=== PATIENT | female | born 1955 | race Caucasian/White ===

== ENCOUNTER → 2016-03-21 | Outpatient (CLI) | payer BC ==
[~2016-03-21] MED LIST: CEPH500C PO; EZET10TA63 PO; PRM/45 PO; SIMV20TA2 PO; SYN50 PO
--- NOTE | 2016-03-21 16:44 | MAMMOGRAPHY REPORT ---
BILATERAL DIGITAL SCREENING MAMMOGRAM TOMOSYNTHESIS WITH CAD: 03/21/2016 TECHNIQUE: Breast tomosynthesis in addition to standard 2D mammography was performed. Current study was also evaluated with a Computer Aided Detection (CAD) system. COMPARISON: Comparison is made to exams dated: 03/19/2015 mammogram, 03/17/2014 mammogram, 04/19/2014 ma mmogram, 08/02/2012 mammogram, 01/29/2012 mammogram, and 01/22/2011 mammogram - [facility]. BREAST COMPOSITION: The tissue of both breasts is heterogeneously dense, which may obscure small ma sses. FINDINGS: No suspicious masses, calcifications, or areas of architectural distortion are noted in e ither breast. There has been no significant interval change compared to prior exams. Again noted ar e multiple surgical clips in the right upper outer quadrant posteriorly. 2 biopsy marker clips are also again noted in the right breast. Scattered bilateral benign-appearing calcifications are not s ignificantly changed. IMPRESSION: ACR BI-RADS CATEGORY 2: BENIGN There is no mammographic evidence of malignancy. A 1 year screening mammogram is recommended. The p atient will receive written notification of the results. Approximately 10% of breast cancers are not detected with mammography. A negative mammographic repor t should not delay biopsy if a clinically suggestive mass is present. Yara Tomlinson M.D. ah/:03/21/2016 15:57:27 Charter Pilot: Montse DEMPSEY)(M), [facility] letter sent: Normal 1/2 BI-RADS Code: ACR BI-RADS Category 2: Benign
== END | disposition home or self-care (01) ==
LOC: C.MAMM 10:22
PROVIDERS: ATTEND Internal Medicine
DX: Z12.31 Encounter for screening mammogram for malignant neoplasm of breast (principal)

== ENCOUNTER → 2016-12-17 | Outpatient (CLI) | payer BC ==
[2016-12-17 13:29] LABS: BASO % 0.9 %; BASO ABS # 0.06 K/uL (0-0.2); COMPLETE YES; HEMATOCRIT 43.3 % (37-47); IG% 0.1 %; LYMPH % 31.3 %; LYMPH ABS # 2.15 K/uL (1.2-3.4); MEAN CELL VOLUME 92.5 fL (80-100); MEAN CORPUSCULAR HEMOGLOBIN 31.4 pg (25-34); MEAN CORPUSCULAR HGB CONC 33.9 g/dl (32-36); MEAN PLATELET VOLUME 9.9 fL (7.4-10.4); NEUT % 56.7 %; PLATELET COUNT 248 K/uL (130-400); RED BLOOD COUNT 4.68 M/uL (4.2-5.4); WHITE BLOOD COUNT 6.87 K/uL (4.8-10.8)
[2016-12-17 13:54] LABS: ALT/SGPT 18 U/L (12-78); AST/SGOT 32 U/L (15-37); BLOOD UREA NITROGEN 17 mg/dl (7-18); BUN/CREATININE RATIO 20.7 (10-20); CALCIUM 9.3 mg/dl (8.5-10.1); CARBON DIOXIDE 27 mmol/L (21-32); CHLORIDE 104 mmol/L (98-107); CHOLESTEROL 186 mg/dl (0-200); CREATININE 0.83 mg/dl (0.60-1.20); GLUCOSE 85 mg/dl (70-99); POTASSIUM 4.2 mmol/L (3.5-5.1); SODIUM 139 mmol/L (136-145); TRIGLYCERIDES 108 mg/dl (0-150); VERY LOW DENSITY LIPOPROT CALC 22 mg/dl
[2016-12-17 14:04] LABS: ALKALINE PHOSPHATASE 97 U/L (45-117); CHOLESTEROL/HDL RATIO 2.2; HDL CHOLESTEROL 84 mg/dl; LDL CHOLESTEROL CALCULATED 80 mg/dl
== END | disposition home or self-care (01) ==
LOC: C.LABBC 09:22
PROVIDERS: ATTEND Internal Medicine
DX: H91.91 Unspecified hearing loss, right ear (principal); E03.9 Hypothyroidism, unspecified; M81.0 Age-related osteoporosis without current pathological fracture; E78.5 Hyperlipidemia, unspecified; Z89.612 Acquired absence of left leg above knee

== ENCOUNTER → 2017-01-15 | Outpatient (CLI) | payer BC | END | disposition home or self-care (01) | LOC: C.MAMM 13:52 | PROVIDERS: ATTEND Internal Medicine | DX: M81.0 Age-related osteoporosis without current pathological fracture (principal) ==

== ENCOUNTER → 2017-03-23 | Outpatient (CLI) | payer BC ==
--- NOTE | 2017-03-24 12:57 | MAMMOGRAPHY REPORT ---
BILATERAL DIGITAL SCREENING MAMMOGRAM TOMOSYNTHESIS WITH CAD: 03/23/2017 CLINICAL HISTORY: Routine screening. Patient has no complaints. TECHNIQUE: Breast tomosynthesis in addition to standard 2D mammography was performed. Current study was also evaluated with a Computer Aided Detection (CAD) system. COMPARISON: Comparison is made to exams dated: 03/21/2016 mammogram, 03/19/2015 mammogram, 03/17/2014 daryl mogram, 08/02/2012 mammogram, 01/20/2012 mammogram, and 01/14/2011 mammogram - [facility]. BREAST COMPOSITION: The tissue of both breasts is heterogeneously dense, which may obscure small mas ses. FINDINGS: There is stable expected architectural distortion and surgical clips in the upper outer pos terior right breast. 2 stable metallic biopsy markers are also seen in the right breast. Stable jalyn upings of benign-appearing round and punctate microcalcifications in the left breast. No developing m ass, architectural distortion or cluster of suspicious microcalcifications is seen in either breast. IMPRESSION: ACR BI-RADS CATEGORY 2: BENIGN There is no mammographic evidence of malignancy. A 1 year screening mammogram is recommended. The pa tient will receive written notification of the results. Approximately 10% of breast cancers are not detected with mammography. A negative mammographic report should not delay biopsy if a clinically suggestive mass is present. Mady Velasco M.D. ay/:03/23/2017 15:54:22 Billing Typist: Melly Rehman RT(R)(M), [facility] letter sent: Normal 1/2 BI-RADS Code: ACR BI-RADS Category 2: Benign
== END | disposition home or self-care (01) ==
LOC: C.MAMM 13:46
PROVIDERS: ATTEND Internal Medicine
DX: Z12.31 Encounter for screening mammogram for malignant neoplasm of breast (principal)

== ENCOUNTER 2024-04-17 15:10 | Inpatient (IN) ==
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
[2024-04-17 16:34] LABS: Basophils # (auto) 0.04 K/uL (0.00-0.20); Basophils % (auto) 0.4 %; Eosinophils # (auto) 0.08 K/uL (0.00-0.50); Eosinophils % (auto) 0.7 %; Hemoglobin 13.4 g/dl (12.0-16.0); Immature Granulocytes # (auto) 0.03 K/uL (0.01-0.20); Immature Granulocytes % (auto) 0.3 %; Lymphocytes % (auto) 13.8 %; Mean Corpuscular Hemoglobin 30.1 pg (25.0-34.0); Mean Corpuscular Hgb Conc 34.4 g/dL (32.0-36.0); Mean Corpuscular Volume 87.6 fL (80.0-100.0); Mean Platelet Volume 9.8 fL (9.4-12.4); Monocytes # (auto) 0.76 K/uL (0.11-0.59); Neutrophils # (auto) 8.44 K/uL (1.40-6.50); Neutrophils % (auto) 77.8 %; Platelet Count 339 K/uL (130-400); RDW Coefficient of Variation 13.8 % (11.5-14.5); RDW Standard Deviation 44.5 fL (36.4-46.3); Red Blood Count 4.45 M/uL (4.20-5.40); White Blood Count 10.85 K/ul (4.8-10.8)
[2024-04-17 16:39] LABS: Albumin Globulin Ratio 1.1 (0.9-2); Albumin Level 4.3 gm/dl (3.4-5.0); BUN Creatinine Ratio 25.8 (10-20); Bilirubin,Total 0.5 mg/dl (0.2-1.0); Creatinine Clr Calc Pharmacy 68.5 ml/min; Globulin 3.8 gm/dl (2.5-4.0); Potassium 3.3 mmol/L (3.5-5.1); Total Protein 8.1 gm/dl (6.0-8.3)
[2024-04-17] MEDS: ALBUT/IPRATROP 3MG/0.5MG NEB 3 ML VIAL NEB ONE (16:41)
[2024-04-17 16:45] LABS: Troponin I High Sensitivity 3.7 pg/ml (0-14)
--- NOTE | 2024-04-17 16:50 | XRay Report ---
EXAM: Radiograph of the Chest 1 View INDICATION: Dyspnea TECHNIQUE: Frontal view of the chest. COMPARISON: 11/05/2023 FINDINGS: Lungs and pleural spaces: Hyperinflation with minimal patchy infiltrates in each base. No pleural effusion or pneumothorax. Heart: Prominent cardiac shadow accentuated by technique. Mediastinum: Normal contour. Bones/joints: No fracture, erosion or dislocation. Soft tissues: No abnormality noted. No radiopaque foreign body noted. Upper abdomen: No abnormality noted. IMPRESSION: Chronic hyperinflation with minimal patchy bilateral basilar atelectasis or pneumonia. ACT 112: N/A Electronically signed by Marci Mendez 04-17-2024 4:49 PM
[2024-04-17 17:02] LABS: INR 0.9 (0.9-1.1); Prothrombin Time 10.3 Seconds (9.0-12.0)
[2024-04-17 17:19] LABS: Adenovirus PCR Not Detected (NotDetected); Bordetella parapertussis PCR Not Detected (NotDetected); Bordetella pertussis PCR Not Detected (NotDetected); Chlamydia pneumoniae PCR Not Detected (NotDetected); Coronavirus 229E PCR Not Detected (NotDetected); Coronavirus CoV-2 (COVID19)PCR Not Detected (NotDetected); Coronavirus HKU1 PCR Not Detected (NotDetected); Coronavirus NL63 PCR Not Detected (NotDetected); Coronavirus OC43PCR Not Detected (NotDetected); Human Metapneumovirus PCR Not Detected (NotDetected); Influenza A PCR Not Detected (NotDetected); Influenza B PCR Not Detected (NotDetected); Mycoplasma pneumoniae PCR Not Detected (NotDetected); Parainfluenza Virus 1 PCR Not Detected (NotDetected); Parainfluenza Virus 2 PCR Not Detected (NotDetected); Parainfluenza Virus 3 PCR Not Detected (NotDetected); Parainfluenza Virus 4 PCR Not Detected (NotDetected); Respiratory Syncytial VirusPCR Not Detected (NotDetected); Rhinovirus/Enterovirus PCR Not Detected (NotDetected)
[2024-04-17] MEDS: OPTIRAY 320 125ml IV ONE (17:56)
--- NOTE | 2024-04-17 18:06 | CT Scan Report ---
EXAM: CT Angiography Chest With Intravenous Contrast INDICATION: Cough and congestion. TECHNIQUE: Axial computed tomographic angiography images of the chest with intravenous contrast. Sagittal and coronal reformatted images were created and reviewed. This CT exam was performed using one or more of the following dose reduction techniques: automated exposure control, adjustment of the mA and/or kV according to patient size, and/or use of iterative reconstruction technique. MIP reconstructed images were created and reviewed. CONTRAST: 119 ml of Optiray 320 was administered intravenously. COMPARISON: 11/05/2023 FINDINGS: Pulmonary arteries: No abnormality noted. No pulmonary embolism. Aorta: No acute change noted. No thoracic aortic aneurysm or dissection. Lungs and pleural spaces: Respiratory motion limits assessment of the pulmonary parenchyma. Stable centrilobular emphysema. There is mild bilateral lower lobe atelectasis. Mild lower lobe airway thickening difficult to exclude. No pleural effusion or pneumothorax. No bronchiectasis or honeycombing. No mass. Heart: Cardiomegaly. No evidence of right heart strain. No pericardial effusion. Thyroid: Stable dense 5 mm left thyroid calcification. No further assessment required. Bones/joints: No acute or atypical chronic changes. Soft tissues: No abnormality noted. Lymph nodes: No abnormality noted. No enlarged lymph nodes. IMPRESSION: 1. No pulmonary embolus noted. 2. Respiratory motion limits assessment of the pulmonary parenchyma. There may be mild bronchitis. There is bilateral lower lobe atelectasis. 3. Stable centrilobular emphysema. ACT 112: N/A Electronically signed by Marci Mendez 04-17-2024 6:05 PM
[2024-04-17] MEDS: methylPREDNISolone 125 MG/2 ML VIAL IV STA (18:21)
[2024-04-17 18:44] LABS: Appearance Urine Clear (Clear); Bacteria Urine Automated None Seen (None Seen); Bilirubin Urine Negative (Negative); Blood Urine Negative (Negative); Cast Urine Automated 0-2 /lpf (0-2); Color Urine Yellow; Epithelial Cell Urine Auto 0-2 /hpf (0-2); Glucose Urine UA Negative (Negative); Ketones Urine 3+ (Negative); Leukocyte Esterase Urine Negative (Negative); Mucus Urine Present (None Prsent); Nitrite Urine Negative (Negative); Protein Urine 1+ (Negative); RBC Urine Automated 0-2 /hpf (0-2); Specific Gravity Urine 1.026 (1.000-1.030); Urobilinogen Urine Negative (Negative); WBC Urine Automated 0-5 /hpf (0-5); pH Urine 5.5 (4.5-7.5)
[2024-04-17] MEDS: ACETAMINOPHEN 325 MG TAB PO STA (18:54)
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
[2024-04-17] MEDS ORDERED: ONDANSETRON INJ 2 MG/ML 2 ML VIAL IV PRN (23:22)
[2024-04-17] MEDS ORDERED: methylPREDNISolone 10 mg/mL (For Ped Dose < 7mg) IV SCH (23:22)
[2024-04-18] MEDS: HEPARIN SOD 5,000 UNIT/0.5 ML VIAL SQ SCH (00:19)
[2024-04-18] MEDS: CHOLECALCIFEROL 25 MCG (1000 UNITS) TAB PO SCH (00:20)
[2024-04-18] MEDS: SIMVASTATIN 20 MG TAB PO SCH (00:20)
[2024-04-18] MEDS: levoFLOXacin/D5W 750 MG/150 ML BAG IV SCH (00:20)
[2024-04-18] MEDS: MULTIVITAMIN TAB PO SCH (00:20)
[2024-04-18] MEDS: methylPREDNISolone 40 MG in SYRINGE 0 ML IV SCH (01:56)
[2024-04-18 06:11] LABS: Hematocrit (blood only) 37.3 % (37.0-47.0); Hemoglobin 12.7 g/dl (12.0-16.0); Mean Corpuscular Hemoglobin 29.2 pg (25.0-34.0); Mean Corpuscular Volume 85.7 fL (80.0-100.0); Mean Platelet Volume 9.3 fL (9.4-12.4); Platelet Count 319 K/uL (130-400); RDW Coefficient of Variation 13.9 % (11.5-14.5); RDW Standard Deviation 43.6 fL (36.4-46.3); Red Blood Count 4.35 M/uL (4.20-5.40); White Blood Count 10.66 K/ul (4.8-10.8)
[2024-04-18 06:20] LABS: BUN Creatinine Ratio 24.2 (10-20); Calcium 9.4 mg/dl (8.6-10.3); Creatinine Clr Calc Pharmacy 72.9 ml/min; Potassium 3.9 mmol/L (3.5-5.1)
[2024-04-18 06:31] LABS: Basophils # (auto) 0.01 K/uL (0.00-0.20); Basophils % (auto) 0.1 %; Immature Granulocytes # (auto) 0.05 K/uL (0.01-0.20); Immature Granulocytes % (auto) 0.5 %; Lymphocytes # (auto) 0.65 K/uL (1.20-3.40); Lymphocytes % (auto) 6.1 %; Monocytes % (auto) 0.9 %; Neutrophils # (auto) 9.85 K/uL (1.40-6.50); Neutrophils % (auto) 92.4 %; Polychromasia 1+
[2024-04-18] MEDS: ASCORBIC ACID 500 MG TAB PO SCH (08:00)
--- NOTE | 2024-04-18 08:35 | Hospitalist Progress Note ---
Date of Service April 18, 2024 Assessment & Plan (1) Bronchitis: (2) Acute respiratory failure with hypoxia: (3) Acute hypokalemia: Plan SOB at rest began on 04/17. Thought to be secondary to bronchitis. Much improved on 04/18. Continued stay due to hypoxia/increased oxygen demand. #Bronchitis BioFire negative on 04/17 No leukocytosis; afebrile CXR on arrival revealed chronic hyperinflation with minimal patchy bilateral atelectasis v. PNA No leukocytosis; afebrile Continue Levaquin 750 mg IV q24h; QTc okay at 440 Continue Solu-Medrol 40 mg IV q8h Sputum culture pending #Acute hypoxic respiratory failure SpO2 88% on admission Patient is a former tobacco cigarette smoker, but denies history of asthma or COPD She does not follow with a bilingual teacher assistant, and does not believe she has ever had PFTs done Chest CT on arrival revealed no pulmonary embolism Titrate supplemental oxygen as needed to maintain SpO2 >94% Continue to wean as tolerated Continuous pulse oximetry Note: On 04/18, patient's SpO2 continued to drop below 90% while at rest on room air when titrated off oxygen 2 Step home O2 evaluation on the morning of 04/19 #Former tobacco cigarette smoker Noted; quit 4 years ago #Hypokalemia Resolved Disposition: Continued stay due to hypoxia on room air Regular diet VTE PPx: Heparin 5000u SQ q12h Admission and Anticipated Discharge Date Admission Date: April 17, 2024 Subjective Shira reports her breathing is much improved from yesterday, and that the steroids are helping her symptoms. She originally presented on 04/17 for worsening ABLDWIN, and development of SOB at rest. She has had a dry cough ongoing for the past couple weeks, and was taking Mucinex cold and flu last week as she thought she might be sick. She does have a sick coworker that she has been working with. She does not use supplemental oxygen at baseline or CPAP at night. Patient is a former tobacco cigarette smoker but quit 4 years ago. She denies prior history of COPD and asthma. She does not follow with a bilingual teacher assistant, and does not believe she has ever had PFTs done. ROS: Patient endorses night sweats, BALDWIN, SOB at rest (resolved), dry cough, coughing fits with deep breath, and loose stool. Patient denies fever, chills, body aches, chest pain, chest palpitations, pleuritic CP, abdominal pain, N/V/D, or blood in the urine or stool. Review of Systems Review of Systems: See HPI above Physical Exam Physical Exam: General: no acute distress; pleasant affect; non-toxic appearing; well- nourished; cooperative; SpO2 94% on 2L NC HEENT: normocephalic, atraumatic; no scleral icterus; PERRLA; vision intact; hard of hearing Neck: supple; no lymphadenopathy; trachea midline Skin: warm, dry without signs of tenting; no cyanosis; no rashes, bruising, lesions, or erythema noted CV: chest wall NTP; RRR; S1/S2 normal; no murmurs/rubs/gallops; pulses intact and symmetric at radial, DP, and PT Lungs: no acute respiratory distress; symmetrical chest wall expansion; mild bibasilar crackles in the lung grady bilaterally ABD: Soft, NTP; BS present; no rebound/guarding; no distention MSK: no tics or fasciculations; no edema noted in the RLE, nonerythematous; prosthetic LLE Neuro: A&Ox3; normal mood and affect; fluent speech; no focal deficits; sensation intact in the RLE Trial of patient on room air, and patient's SpO2 dropped to 90% while laying in bed Results & Data Results & Data Vital Signs (Past 12 Hours) Vital Signs Temp Pulse Pulse Pulse Resp BP Pulse Ox 04/18/24 07:28 70 04/18/24 07:12 36.6 C 67 18 160/71 H 94 04/18/24 03:30 36.5 C 75 18 149/72 H 97 04/18/24 02:01 36.6 C 04/18/24 00:05 68 04/17/24 23:20 04/17/24 23:20 36.6 C 89 20 152/64 H 96 04/17/24 22:00 72 18 131/71 93 O2 Del Method O2 Flow Rate 04/18/24 07:28 04/18/24 07:12 Nasal Cannula 2 04/18/24 03:30 Nasal Cannula 2 04/18/24 02:01 04/18/24 00:05 04/17/24 23:20 Nasal Cannula 3 04/17/24 23:20 Nasal Cannula 3 04/17/24 22:00 Nasal Cannula 3 Laboratory Results Abnormal lab results 04/17/24 04/17/24 04/18/24 Range/Units 15:32 17:39 02:00 WBC 10.85 H (4.8-10.8) K/ul MPV (9.4-12.4) fL Neut # (Auto) 8.44 H (1.40-6.50) K/uL Lymph # (Auto) (1.20-3.40) K/uL [place] # (Auto) 0.76 H (0.11-0.59) K/uL Potassium 3.3 L (3.5-5.1) mmol/L BUN/Creatinine Ratio 25.8 H (10-20) Glucose 102 H (70-99(Fasting)) mg/dl POC Glucose 206 H (70-99) mg/dl Urine Protein 1+ H (Negative) Urine Ketones 3+ H (Negative) Urine Mucus Present A (None Prsent) 04/18/24 Range/Units 05:27 WBC (4.8-10.8) K/ul MPV 9.3 L (9.4-12.4) fL Neut # (Auto) 9.85 H (1.40-6.50) K/uL Lymph # (Auto) 0.65 L (1.20-3.40) K/uL [place] # (Auto) 0.10 L (0.11-0.59) K/uL Potassium (3.5-5.1) mmol/L BUN/Creatinine Ratio 24.2 H (10-20) Glucose 140 H (70-99(Fasting)) mg/dl POC Glucose (70-99) mg/dl Urine Protein (Negative) Urine Ketones (Negative) Urine Mucus (None Prsent) Diagnostic Findings Chest X-Ray 04/17/24 15:58 EXAM: Radiograph of the Chest 1 View INDICATION: Dyspnea TECHNIQUE: Frontal view of the chest. COMPARISON: 11/05/2023 FINDINGS: Lungs and pleural spaces: Hyperinflation with minimal patchy infiltrates in each base. No pleural effusion or pneumothorax. Heart: Prominent cardiac shadow accentuated by technique. Mediastinum: Normal contour. Bones/joints: No fracture, erosion or dislocation. Soft tissues: No abnormality noted. No radiopaque foreign body noted. Upper abdomen: No abnormality noted. IMPRESSION: Chronic hyperinflation with minimal patchy bilateral basilar atelectasis or pneumonia. ACT 112: N/A Electronically signed by Marci Mendez 04-17-2024 4:49 PM Chest CTA 04/17/24 16:22 EXAM: CT Angiography Chest With Intravenous Contrast INDICATION: Cough and congestion. TECHNIQUE: Axial computed tomographic angiography images of the chest with intravenous contrast. Sagittal and coronal reformatted images were created and reviewed. This CT exam was performed using one or more of the following dose reduction techniques: automated exposure control, adjustment of the mA and/or kV according to patient size, and/or use of iterative reconstruction technique. MIP reconstructed images were created and reviewed. CONTRAST: 119 ml of Optiray 320 was administered intravenously. COMPARISON: 11/05/2023 FINDINGS: Pulmonary arteries: No abnormality noted. No pulmonary embolism. Aorta: No acute change noted. No thoracic aortic aneurysm or dissection. Lungs and pleural spaces: Respiratory motion limits assessment of the pulmonary parenchyma. Stable centrilobular emphysema. There is mild bilateral lower lobe atelectasis. Mild lower lobe airway thickening difficult to exclude. No pleural effusion or pneumothorax. No bronchiectasis or honeycombing. No mass. Heart: Cardiomegaly. No evidence of right heart strain. No pericardial effusion. Thyroid: Stable dense 5 mm left thyroid calcification. No further assessment required. Bones/joints: No acute or atypical chronic changes. Soft tissues: No abnormality noted. Lymph nodes: No abnormality noted. No enlarged lymph nodes. IMPRESSION: 1. No pulmonary embolus noted. 2. Respiratory motion limits assessment of the pulmonary parenchyma. There may be mild bronchitis. There is bilateral lower lobe atelectasis. 3. Stable centrilobular emphysema. ACT 112: N/A Electronically signed by Marci Mendez 04-17-2024 6:05 PM PG Care Time/CCT Total # of Minutes Spent Total Time Spent with Patient: Total time spent is greater than 50% in coordination of care (as documented) at patient's floor/unit and/or counseling patient: Coding [place] [address] SUB INP/OBS CARE 2/35MIN Patient Type Established Medical Decision Making Moderate Complexity Diagnoses Bronchitis J40 Acute respiratory failure with hypoxia J96.01 Acute hypokalemia E87.6
[2024-04-18] MEDS: ACETAMINOPHEN 325 MG TAB PO PRN (10:29)
[2024-04-18] MEDS ORDERED: BENZONATATE 100 MG CAPSULE PO PRN (16:06)
--- NOTE | 2024-04-19 06:05 | Electrocardiogram Report ---
Test Reason : Blood Pressure : */* mmHG Vent. Rate : 85 BPM Atrial Rate : 85 BPM P-R Int : 174 ms QRS Dur : 86 ms QT Int : 370 ms P-R-T Axes : 76 -42 58 degrees QTcB Int : 440 ms Normal sinus rhythm Left axis deviation Minimal voltage criteria for LVH, may be normal variant ( [place] product ) Nonspecific ST abnormality Abnormal ECG When compared with ECG of 31-Aug-2018 17:45, Premature ventricular complexes are no longer Present Vent. rate has increased by 29 bpm QRS axis Shifted left Confirmed by Sachin Tellez ([id number]) on 04/19/2024 6:05:18 AM Referred By: Ev Camp Confirmed By: Sachin Tellez
[2024-04-19 08:46] LABS: Hematocrit (blood only) 39.6 % (37.0-47.0); Hemoglobin 13.3 g/dl (12.0-16.0); Mean Corpuscular Hemoglobin 29.2 pg (25.0-34.0); Mean Corpuscular Hgb Conc 33.6 g/dL (32.0-36.0); Mean Platelet Volume 9.5 fL (9.4-12.4); Platelet Count 373 K/uL (130-400); RDW Standard Deviation 44.4 fL (36.4-46.3); Red Blood Count 4.55 M/uL (4.20-5.40); White Blood Count 21.89 K/ul (4.8-10.8)
[2024-04-19 09:12] LABS: BUN Creatinine Ratio 32.8 (10-20); Calcium 9.2 mg/dl (8.6-10.3); Creatinine Clr Calc Pharmacy 67.5 ml/min; Potassium 4.1 mmol/L (3.5-5.1)
[2024-04-19 09:13] LABS: Basophils # (auto) 0.02 K/uL (0.00-0.20); Basophils % (auto) 0.1 %; Immature Granulocytes # (auto) 0.16 K/uL (0.01-0.20); Immature Granulocytes % (auto) 0.7 %; Lymphocytes # (auto) 0.99 K/uL (1.20-3.40); Lymphocytes % (auto) 4.5 %; Monocytes # (auto) 0.89 K/uL (0.11-0.59); Monocytes % (auto) 4.1 %; Neutrophils # (auto) 19.83 K/uL (1.40-6.50); Neutrophils % (auto) 90.6 %
--- NOTE | 2024-04-19 09:42 | Hospitalist Progress Note ---
Date of Service April 19, 2024 Assessment & Plan (1) Bronchitis: (2) Acute respiratory failure with hypoxia: (3) Acute hypokalemia: Plan SOB at rest began on 04/17. Thought to be secondary to bronchitis. Patient did report she had a setback secondary to coughing fits/chills/night sweats on the morning of 04/19. Continued stay due to hypoxia/increased oxygen demand. #Bronchitis BioFire negative on 04/17 CXR on arrival revealed chronic hyperinflation with minimal patchy bilateral atelectasis v. PNA Chest CTA revealed bilateral lower lobe atelectasis and bronchitis; no mention of consolidation to suggest pneumonia Patient did develop a leukocytosis of 21.89 on 04/19, but this was in the setting of IV steroid use; no reported or documented fevers Elevated CRP and ESR Procalcitonin WNL on 04/19 Guaifenesin 600 mg p.o. BID for cough DuoNeb 3 mL Q6R Levaquin 750 mg IV q24h; QTc okay at 440 Solu-Medrol 40 mg IV daily First sputum culture appeared contaminated; repeat sputum culture ordered, pending #Acute hypoxic respiratory failure SpO2 88% on admission Patient is a former tobacco cigarette smoker, but denies history of asthma or COPD She does not follow with a educational technologist, and does not believe she has ever had PFTs done Chest CT on arrival revealed no pulmonary embolism Titrate supplemental oxygen as needed to maintain SpO2 >94% Continue to wean as tolerated Continuous pulse oximetry Note: On the morning of 04/19, patient's SpO2 continued to drop below 90% while at rest on room air when titrated off oxygen Patient declined two-step with respiratory therapy that, as she reported feel ing worse overnight However, on the evening of 04/19, patient is currently on room air; will defer ordering additional two-step #Former tobacco cigarette smoker Noted; quit 4 years ago #Hypokalemia Resolved Disposition: Continued stay due to hypoxia on room air Regular diet VTE PPx: Heparin 5000u SQ q12h Admission and Anticipated Discharge Date Admission Date: April 17, 2024 Dipesh Silva reports that she did not sleep well and she was coughing most of the night. She reports her cough has become more productive, and she is coughing up clear sputum production. She denies any blood in her mucus, but does report nasal congestion and some blood when blowing her nose. Additionally, she does report she has been wheezing. While she initially declined 2 step respiratory therapy evaluation for home oxygen this morning, she does report she is amenable to trying a two-step if unable to wean off of oxygen. Patient does not normally ambulate with a walker or cane at home, and reports that she is normally very mo bile. Additionally, patient expresses concern that she will require a doctor's excuse upon discharge. 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 She is also requesting 2 additional days to recuperate upon discharge. ROS: Patient endorses chills and night sweats, coughing fits, wheezing, and productive cough (clear sputum production). Patient denies fever, body aches, lightheadedness when walking, rashes, tick bites, hemoptysis, chest pain, chest palpitations, abdominal pain, or nausea/vomiting/diarrhea. Review of Systems Review of Systems: See HPI above Physical Exam Physical Exam: General: no acute distress; pleasant affect; non-toxic appearing; well- nourished; cooperative; SpO2 97% on 2L NC HEENT: normocephalic, atraumatic; no scleral icterus; PERRLA; vision intact; hard of hearing Neck: supple; no lymphadenopathy; trachea midline Skin: warm, dry without signs of tenting; no cyanosis; no rashes, bruising, lesions, or erythema noted CV: chest wall NTP; RRR; S1/S2 normal; no murmurs/rubs/gallops; pulses intact and symmetric at radial, DP, and PT Lungs: no acute respiratory distress; however, patient does exhibit hacking cough every couple minutes; symmetrical chest wall expansion; mild bibasilar crackles and wheezing auscultated in the lower lung grady bilaterally ABD: Soft, NTP; BS present; no rebound/guarding; no distention MSK: no tics or fasciculations; no edema noted in the RLE, nonerythematous; prosthetic LLE Neuro: A&Ox3; normal mood and affect; fluent speech; no focal deficits; sensation intact in the RLE Trial of patient on room air, and patient's SpO2 dropped to 90% while laying in bed Results & Data Results & Data Vital Signs (Past 12 Hours) Vital Signs Temp Pulse Pulse Resp BP Pulse Ox O2 Del Method 04/19/24 07:54 36.5 C 65 18 153/77 H 94 Nasal Cannula 04/19/24 07:19 Nasal Cannula 04/19/24 07:08 72 04/19/24 02:20 36.5 C 103 H 20 159/86 H 92 Nasal Cannula 04/18/24 22:00 68 04/18/24 22:00 36.7 C 79 16 165/66 H 96 Nasal Cannula O2 Flow Rate 04/19/24 07:54 2 04/19/24 07:19 2 04/19/24 07:08 04/19/24 02:20 2 04/18/24 22:00 04/18/24 22:00 2 Laboratory Results Abnormal lab results 04/19/24 04/19/24 Range/Units 07:59 11:08 WBC 21.89 H (4.8-10.8) K/ul Neut # (Auto) 19.83 H (1.40-6.50) K/uL Lymph # (Auto) 0.99 L (1.20-3.40) K/uL [place] # (Auto) 0.89 H (0.11-0.59) K/uL ESR 36 H (0-30) mm/hr BUN/Creatinine Ratio 32.8 H (10-20) Glucose 130 H (70-99(Fasting)) mg/dl C-Reactive Protein 1.98 H (0-0.5) mg/dl PG Care Time/CCT Total # of Minutes Spent Total Time Spent with Patient: Total time spent is greater than 50% in coordination of care (as documented) at patient's floor/unit and/or counseling patient: Coding [place] [address] SUB INP/OBS CARE 3/50MIN Patient Type Established History Comprehensive Exam Comprehensive Medical Decision Making High Complexity Diagnoses Bronchitis J40 Acute respiratory failure with hypoxia J96.01 Acute hypokalemia E87.6
[2024-04-19] MEDS: ALBUT/IPRATROP 3MG/0.5MG NEB 3 ML VIAL NEB STA (12:31)
[2024-04-19] MEDS: guaiFENesin 600 MG TABCR PO SCH (12:36)
[2024-04-19] MEDS ORDERED: ALBUT/IPRATROP 3MG/0.5MG NEB 3 ML VIAL NEB PRN (18:30)
[2024-04-20 06:26] LABS: Basophils # (auto) 0.01 K/uL (0.00-0.20); Basophils % (auto) 0.1 %; Hematocrit (blood only) 40.4 % (37.0-47.0); Hemoglobin 13.5 g/dl (12.0-16.0); Immature Granulocytes % (auto) 0.6 %; Lymphocytes # (auto) 2.13 K/uL (1.20-3.40); Lymphocytes % (auto) 13.4 %; Mean Corpuscular Hemoglobin 29.2 pg (25.0-34.0); Mean Corpuscular Hgb Conc 33.4 g/dL (32.0-36.0); Mean Corpuscular Volume 87.3 fL (80.0-100.0); Mean Platelet Volume 9.6 fL (9.4-12.4); Monocytes # (auto) 1.11 K/uL (0.11-0.59); Neutrophils # (auto) 12.58 K/uL (1.40-6.50); Neutrophils % (auto) 78.9 %; Platelet Count 367 K/uL (130-400); RDW Coefficient of Variation 14.1 % (11.5-14.5); RDW Standard Deviation 45.2 fL (36.4-46.3); Red Blood Count 4.63 M/uL (4.20-5.40); White Blood Count 15.93 K/ul (4.8-10.8)
[2024-04-20 06:43] LABS: BUN Creatinine Ratio 31.1 (10-20); Creatinine Clr Calc Pharmacy 61.1 ml/min; Potassium 3.8 mmol/L (3.5-5.1)
[2024-04-20 07:55] VITALS: BP 144/81; PULSE 76; RESP 15; TEMP 97.5; O2SAT 92
[2024-04-20] MEDS: methylPREDNISolone 40 MG in SYRINGE 0 ML IV SCH (08:12)
--- NOTE | 2024-04-20 08:42 | Discharge Summary ---
Discharge Summary Date of Service April 20, 2024 Principal Dx & Hospital Course #1 = Principal Diagnosis (1) Bronchitis: (2) Acute respiratory failure with hypoxia: (3) Acute hypokalemia: Plan SOB at rest began on 04/17 secondary to suspected bronchitis. While patient reports that she still had some night sweats on the evening of 04/19, she reports she is feeling much better the morning of 04/20 and is ready to go home. She has been off supplemental oxygen for an extended period of time and is currently resting peacefully at 97% on room air. #Bronchitis BioFire negative on 04/17 CXR on arrival revealed chronic hyperinflation with minimal patchy bilateral atelectasis v. PNA Chest CTA revealed bilateral lower lobe atelectasis and bronchitis; no mention of consolidation to suggest pneumonia Patient did develop a leukocytosis of 21.89 on 04/19, but this was in the setting of IV steroid use; no reported or documented fevers Elevated CRP and ESR Procalcitonin WNL on 04/19 Guaifenesin 600 mg p.o. BID for cough DuoNeb 3 mL Q6R Levaquin 750 mg IV q24h; QTc okay at 440 Solu-Medrol 40 mg IV daily First sputum culture appeared contaminated; repeat sputum culture ordered, pending #Acute hypoxic respiratory failure SpO2 88% on admission Patient is a former tobacco cigarette smoker, but denies history of asthma or COPD She does not follow with a valve steamer, and does not believe she has ever had PFTs done Chest CT on arrival revealed no pulmonary embolism Titrate supplemental oxygen as needed to maintain SpO2 >94% Patient was completely weaned off of supplemental oxygen on the evening of 04/19, and has been on room air for >12h prior to discharge #Former tobacco cigarette smoker Noted; quit 4 years ago Patient has a 30-year smoking history Did discuss following up with a valve steamer for potential PFTs given patient's smoking history and no prior diagnosis of COPD Also recommended that patient obtain a home pulse oximeter to monitor for drops in oxygen levels whenever she gets sick #Hypokalemia Resolved Disposition: Discharge home Admission HPI Per Admitting Provider 68-year-old white female with a previous smoking history. She has been ill for approximately 1 week with a productive cough of greenish colored phlegm. She has dyspnea on exertion. She denies chest pain however. She came to the ED for evaluation. It appears she has acute bronchitis with hypoxia. Some question of basilar infiltrates noted on chest x-ray per radiology but not seen by me. Chest CTA negative for PE. White count is mildly elevated. Potassium slightly low and will be replaced. Serial labs ordered. Now on Levaquin, day 1. Sputum culture ordered. She denies hemoptysis or pleuritic type pain. Chest CTA on admission was negative for PE Admission Exam Per Admitting Provider General-alert and oriented x3, no fever, no chills HEENT-head atraumatic and normocephalic, pupils equal and reactive to light, extraocular muscles intact Neck-no lymphadenopathy or thyromegaly, trachea midline Chest-midline rhonchi. Bilateral end expiratory wheezes. No dullness to percussion Cardiac -regular rate and rhythm, normal S1 and S2 Abdomen-normal bowel sounds, no hepatosplenomegaly Extremities-no cyanosis, clubbing, or edema Neuro-cranial nerves II through XII intact, motor and sensory function within normal limits, strength symmetrical, no focal deficits Psych-normal affect, normal mood Discharge Exam General: no acute distress; pleasant affect; non-toxic appearing; well- nourished; cooperative; SpO2 97% on room air HEENT: normocephalic, atraumatic; no scleral icterus; PERRLA; vision intact; hard of hearing Neck: supple; no lymphadenopathy; trachea midline Skin: warm, dry without signs of tenting; no cyanosis; no rashes, bruising, lesions, or erythema noted CV: chest wall NTP; RRR; S1/S2 normal; no murmurs/rubs/gallops; pulses intact and symmetric at radial, DP, and PT Lungs: no acute respiratory distress; however, patient does exhibit hacking cough every couple minutes; symmetrical chest wall expansion; clear breath sounds auscultated in the lungs bilaterally; no significant wheeze appreciated (much improved from the day prior) ABD: Soft, NTP; BS present; no rebound/guarding; no distention MSK: no tics or fasciculations; no edema noted in the RLE, nonerythematous; prosthetic LLE Neuro: A&Ox3; normal mood and affect; fluent speech; no focal deficits; sensation intact in the RLE Discharge Plan Discharge Items Patient Disposition: Home - Self-Care Reason For Visit: BRONCHITIS, HYPOXIA Discharge Diagnosis: Bronchitis, hypoxia Condition on Discharge: Good Activity: Resume your previous activity Non-emergency contact: Primary Care Provider Call non-emergency contact if: you have any medication questions, your symptoms worsen, you have a fever and your temperature is above 101.5 Follow-up/Referrals: Ev Camp DO [Primary Care Provider] - 04/26/24 9:20 am Diet: Regular Addtl Attending Provider Instructions: You were seen at [facility] from 04/17 to 04/20 for difficulty breathing. Initial labs and imaging were suggestive of bronchitis, or inflammation in the lungs. You were treated with IV steroids and an IV antibiotic called Levaquin while in the hospital. You are also given guaifenesin (Mucinex) for your cough, as well as albuterol nebulizers for wheezing, and incentive spirometer/flutter valve to assist with clearing mucus from the lungs. While on arrival he required supplemental oxygen as her SpO2 (oxygen saturation) drop below 90%, we were able to gradually wean you off of the supplemental oxygen, and at time of discharge your oxygen saturation was 97% on room air. It was recommended that you obtain a home pulse oximeter, which can be obtained from your local [facility] or [facility], or ordered on [employer]. You will be discharged on 2 new medications: Levaquin 500 mg by mouth daily x 4 days This is a pill version of the antibiotic you received while in the hospital Please take 1 tablet by mouth daily for 4 additional days to complete your 7- day course Prednisone 10 mg tablets: Prednisone is a steroid, similar to the IV steroids you received while in the hospital Note: This is a taper down off of your current steroid dosage Please follow instructions and take as directed (starting with 4 tablets daily on days 1, 2, and 3 after discharge, then switch to 3 tablets daily, and so on) We are providing a work excuse for your recovery from 04/20 - 04/24. Okay to return to work on 04/25 if no setbacks. Additionally, we will be reaching out to set up an appointment for pulmonary function tests. These tests are meant to assess breathing function and identify potential obstructive pathology within the lungs. If you develop any new or worsening symptoms (which include but are not limited to new onset of fever, chills, body aches, trouble breathing at rest, blood in cough, or pain with taking deep breaths) please return to the emergency department immediately. Please reach out if you have any questions. It was a pleasure taking care of you. Sincerely, Satish Hess PA-C Pending Studies at Discharge: No Stand-Alone Forms: My [facility], Work/School Release Medications and DC Order Prescriptions: New levofloxacin 500 mg tablet 500 mg PO DAILY 4 Days Qty: 4 0RF prednisone 10 mg tablet See Taper PO DAILY Qty: 30 0RF Taper: Taper, Blank 40 mg DAILY for 3 Days 30 mg DAILY for 3 Days 20 mg DAILY for 3 Days 10 mg DAILY for 3 Days Rx Instructions: Please take as directed: 4 tablets x 3 days, then 3 tablets x 3 days, then 2 tablets x 3 days, then 1 tablet x 3 days Continued (DME) miscellaneous medical supply package See Rx Instructions .ROUTE .MEDSUPPLY Qty: 1 0RF Rx Instructions: Prosthetic supplys simvastatin 20 mg tablet 20 mg PO QPM Qty: 90 3RF ascorbate calcium (vitamin C) 500 mg tablet 500 mg PO DAILY multivitamin Tablet 1 tab PO QPM cholecalciferol (vitamin D3) [Vitamin D3] 2,000 unit Capsule 2,000 unit PO QPM diclofenac sodium [Arthritis Pain (diclofenac)] 1 % gel 2 g topical BID PRN (Reason: Pain) Patient Comments: rare Rx Instructions: apply to single elbow, wrist or hand; for hand includes palm/fingers/back of hand Discharge Orders: Discharge Order (Routine); Ordered 04/20/24 Ordered By: Satish Vlaerio/Other Patient Handouts: Acute Bronchitis Admission Data Admit Date/Time: 04/17/24 18:40 Attending Provider: Rah Morillo Admit Provider: Bakari Stiles Primary Care Provider: Ev Camp Other Providers: Bakari Stiles Hospital Stay Data Consultations 04/17/24 18:17 ED Decision to Admit Stat Diagnostic Imagining Performed 04/17/24 16:22 CT for pulmonary embolism PE [CT angio chest PE protocol] Stat Discharge Instructions Given to Patient (Per Discharging Provider) You were seen at [facility] from 04/17 to 04/20 for difficulty breathing. Initial labs and imaging were suggestive of bronchitis, or inflammation in the lungs. You were treated with IV steroids and an IV antibiotic called Levaquin while in the hospital. You are also given guaifenesin (Mucinex) for your cough, as well as albuterol nebulizers for wheezing, and incentive spirometer/flutter valve to assist with clearing mucus from the lungs. While on arrival he required supplemental oxygen as her SpO2 (oxygen saturation) drop below 90%, we were able to gradually wean you off of the supplemental oxygen, and at time of discharge your oxygen saturation was 97% on room air. It was recommended that you obtain a home pulse oximeter, which can be obtained from your local [facility] or [facility], or ordered on [employer]. You will be discharged on 2 new medications: Levaquin 500 mg by mouth daily x 4 days This is a pill version of the antibiotic you received while in the hospital Please take 1 tablet by mouth daily for 4 additional days to complete your 7- day course Prednisone 10 mg tablets: Prednisone is a steroid, similar to the IV steroids you received while in the hospital Note: This is a taper down off of your current steroid dosage Please follow instructions and take as directed (starting with 4 tablets daily on days 1, 2, and 3 after discharge, then switch to 3 tablets daily, and so on) We are providing a work excuse for your recovery from 04/20 - 04/24. Okay to return to work on 04/25 if no setbacks. Additionally, we will be reaching out to set up an appointment for pulmonary function tests. These tests are meant to assess breathing function and identify potential obstructive pathology within the lungs. If you develop any new or worsening symptoms (which include but are not limited to new onset of fever, chills, body aches, trouble breathing at rest, blood in cough, or pain with taking deep breaths) please return to the emergency department immediately. Please reach out if you have any questions. It was a pleasure taking care of you. Sincerely, Satish Hess PA-C Total Time Total Time Spent Total Time Spent (In Minutes): 30 Coding [place] [address] INP/OBS DISCH >30 MIN Patient Type Established History Comprehensive Exam Comprehensive Medical Decision Making Moderate Complexity Diagnoses Bronchitis J40 Acute respiratory failure with hypoxia J96.01 Acute hypokalemia E87.6
== END 2024-04-20 10:34 | disposition home or self-care (01) | DRG 202 ==
LOC: SUATTDRO → ED 15:10 → 2N 18:40 → SUATTDRO 18:40 → 2N 23:22